=== PATIENT | female | born 1990 | race Two or more races ===

== ENCOUNTER 2021-02-09 10:44 | Inpatient (IN) | payer OTHER ==
[~2021-02-09] VITALS: Ht 157.5 cm; Wt 2.7 kg
[2021-02-09] MEDS ORDERED: PRENATAL TABLE1 EAC1 PO (13:17)
== END 2021-02-12 14:12 | disposition home or self-care (01) | DRG 788 ==
LOC: OB/GYN 10:44 → LDR 10:44 → OB/GYN 16:12
PROVIDERS: ADMIT Specialist; ATTEND Specialist
PROC: 4A1HXFZ Monitoring of Products of Conception, Cardiac Rhythm, External Approach (ICD-10-PCS; 2021-02-09)
PROC: 10D00Z1 Extraction of Products of Conception, Low, Open Approach (ICD-10-PCS; principal; 2021-02-09 17:45)
DX: O34.211 Maternal care for low transverse scar from previous cesarean delivery (principal); O99.824 Streptococcus B carrier state complicating childbirth; Z3A.39 39 weeks gestation of pregnancy; Z37.0 Single live birth; Z20.822 Contact with and (suspected) exposure to COVID-19